=== PATIENT | female | born 1975 | race Caucasian/White ===

== ENCOUNTER 2018-07-20 13:39 | Outpatient (CLI) | payer BC ==
[2018-07-20] MEDS ORDERED: No meds per pt. (14:42)
== END 2018-07-20 23:59 | disposition home or self-care (01) ==
LOC: STAR 13:39
PROVIDERS: ATTEND Obstetrics & Gynecology
DX: Z02.9 Encounter for administrative examinations, unspecified (principal)

== ENCOUNTER 2018-08-01 11:46 | Day surgery (SDC) | payer BC ==
[~2018-08-01] VITALS: Ht 165.1 cm; Wt 74.1 kg
[~2018-08-01 11:46] MED LIST: BUPIVACAINE/PF 0.25% ONE; EPINEPHRINE 1 MG/ML, 1ML ONE; FLUORESCEIN SODIUM 500 MG/5 ML ONE; No meds per pt.; SILVER NITRATE STICK TP ONE
[2018-08-01] MEDS ORDERED: LACTATED RINGERS 1,000 ML IV SCH (12:14)
[2018-08-01] MEDS ORDERED: SCOPOLAMINE PATCH, 1.5MG PATCH.TD72 TD ONE (12:30)
[2018-08-01] MEDS ORDERED: ACETAMINOPHEN 500 MG TABLET PO ONE (12:30)
[2018-08-01] MEDS ORDERED: GABAPENTIN 300 MG CAPSULE PO ONE (12:30)
[2018-08-01 12:33] LABS: HCG UR SG 1.022 (1.003-1.030)
[2018-08-01 12:41] VITALS: BP 132/86
[2018-08-01] MEDS ORDERED: BUPIVACAINE/PF 0.25% ONE (12:51)
[2018-08-01] MEDS ORDERED: EPINEPHRINE 1 MG/ML, 1ML ONE (12:51)
[2018-08-01] MEDS ORDERED: FLUORESCEIN SODIUM 500 MG/5 ML ONE (12:51)
[2018-08-01] MEDS ORDERED: MIDAZOLAM 1 MG/ML, 2ML ONE (13:33)
[2018-08-01] MEDS ORDERED: FENTANYL PF 250 MCG/5ML ONE ×2 (13:33→14:26)
[2018-08-01] MEDS ORDERED: NEOSTIGMINE 1 MG/ML, 10ML ONE (13:44)
[2018-08-01] MEDS ORDERED: KETOROLAC 30 MG/1 ML ONE (13:44)
[2018-08-01] MEDS ORDERED: CEFAZOLIN 1,000 MG ONE (13:44)
[2018-08-01] MEDS ORDERED: DEXAMETHASONE 4 MG/ML, 1ML ONE (13:44)
[2018-08-01] MEDS ORDERED: PROPOFOL 10 MG/ML, 20ML ONE (13:44)
[2018-08-01] MEDS ORDERED: GLYCOPYRROLATE 0.2MG/1ML, 5ML ONE (13:44)
[2018-08-01] MEDS ORDERED: ONDANSETRON 2MG/ML, 2ML ONE (13:44)
[2018-08-01] MEDS ORDERED: HALOPERIDOL 5 MG/ML IV PRN ×2 (14:00)
[2018-08-01] MEDS ORDERED: PROMETHAZINE 25 MG/ML, 1ML IM PRN ×2 (14:00)
[2018-08-01] MEDS ORDERED: LABETALOL 5MG/ML, 20ML IV PRN (14:00)
[2018-08-01] MEDS ORDERED: PROMETHAZINE 25 MG SUPP PR PRN (14:00)
[2018-08-01] MEDS ORDERED: PROMETHAZINE 25 MG/ML, 1ML IV PRN (14:00)
[2018-08-01] MEDS ORDERED: HYDROmorphone 2 MG/ML, 1ML IVPush PRN (14:00)
[2018-08-01] MEDS ORDERED: ONDANSETRON ODT 8 MG PO PRN (14:00)
[2018-08-01] MEDS ORDERED: MORPHINE SULFATE 4 MG/ML, 1ML IVPush PRN (14:00)
[2018-08-01] MEDS ORDERED: FENTANYL PF 100 MCG/2ML IV PRN (14:00)
[2018-08-01] MEDS ORDERED: PROMETHAZINE 12.5 MG SUPP PR PRN (14:00)
[2018-08-01] MEDS ORDERED: OXYcodone 5 MG/5 ML ORAL.SOL UDC PO PRN (14:00)
[2018-08-01] MEDS ORDERED: ONDANSETRON 2MG/ML, 2ML IV PRN (14:00)
[2018-08-01] MEDS ORDERED: MEPERIDINE/PF 25MG/0.5ML IVPush PRN (14:00)
[2018-08-01] MEDS ORDERED: hydrALAzine 20 MG/ML, 1ML IV PRN (14:00)
[2018-08-01] MEDS ORDERED: HYDROmorphone 1 MG/ML, 1ML AMP ONE (15:53)
[2018-08-01] MEDS ORDERED: OXYcodone 5 MG/5 ML ORAL.SOL UDC ONE (15:53)
[2018-08-01] MEDS ORDERED: MEPERIDINE/PF 25MG/ML,1ML ONE (15:53)
[2018-08-01] MEDS ORDERED: PROMETHAZINE 25 MG/ML, 1ML ONE (16:09)
== END 2018-08-01 18:05 | disposition home or self-care (01) ==
LOC: OUT 11:46
PROVIDERS: ATTEND Obstetrics & Gynecology
DX: N92.0 Excessive and frequent menstruation with regular cycle (principal); N94.6 Dysmenorrhea, unspecified; E78.00 Pure hypercholesterolemia, unspecified; I10 Essential (primary) hypertension; Z98.890 Other specified postprocedural states
CPT/HCPCS: 58552; 81025; J0171; J1170; J2250; J2550; J3010; J3490; J7120; 88302; 88307; J0690; J1100; J1885; J2405; J2704; J2710

== ENCOUNTER 2018-08-01 22:32 | Emergency (ER) | payer BC ==
[~2018-08-01] VITALS: Ht 165.1 cm; Wt 75.6 kg
[~2018-08-01 22:32] MED LIST changes: -BUPIVACAINE/PF 0.25% ONE; -EPINEPHRINE 1 MG/ML, 1ML ONE; -FLUORESCEIN SODIUM 500 MG/5 ML ONE; -SILVER NITRATE STICK TP ONE
--- NOTE | 2018-08-01 22:46 | NUR ---
Gabriele donovan in [facility] - 08/01/18 at 2246 by ALLEGRA PT MEDICATED FOR FEVER WITH TYLENOL.
--- NOTE | 2018-08-01 22:54 | NUR ---
NOT TRIAGED/MEDICATED
[2018-08-01] MEDS ORDERED: ACETAMINOPHEN 500 MG TABLET PO ONE (23:00)
--- NOTE | 2018-08-01 23:22 | NUR ---
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
[2018-08-01 23:57] VITALS: BP 113/61
--- NOTE | 2018-08-02 | NUR ---
INSERT CATH EVACUATED URINE
--- NOTE | 2018-08-02 00:29 | NUR ---
urine 500cc out from cath pt understood
== END 2018-08-02 00:31 | disposition home or self-care (01) ==
LOC: ED 23:42
DX: R33.9 Retention of urine, unspecified (principal); Z90.710 Acquired absence of both cervix and uterus
CPT/HCPCS: 51700; 51701; 99283; P9612